=== PATIENT | male | born 1945 | race Caucasian/White ===

== ENCOUNTER 2024-01-11 08:09 | Emergency (ER) | payer MEDICARE, OTHER ==
[2024-01-11 08:56] LABS: #Basophils Less than 0.03 10x3/uL (0.0-0.2); %Basophils 0.1 % (0.0-1.0); %Eosinophils 0.4 % (0.0-10.0); %Lymphocytes 6.5 % (21.0-51.0); %Monocytes 2.3 % (0.0-10.0); %Neutrophils 90.2 % (42.0-75.0); Hematocrit 22.2 % (42.0-52.0); Hemoglobin 7.3 g/dL (14.0-18.0); Mean Corpuscular HGB CONC 32.9 g/dL (32.0-36.0); Mean Corpuscular Hemoglobin 30.9 pg (27.0-31.0); Mean Corpuscular Volume 94.1 fL (78.0-98.0); Mean Platelet Volume 9.5 fL (7.4-10.4); Platelet Count 103 10x3/uL (130-400); RBC Distribution Width 22.6 % (11.5-14.5); Red Blood Cell (RBC) Count 2.36 mill/uL (4.70-6.10)
[2024-01-11 09:14] LABS: ALT (SGPT) 41 U/L (8-55); AST (SGOT) 49 U/L (5-34); Albumin 2.2 g/dL (3.4-4.8); Alkaline Phosphatase 81 U/L (40-110); Anion Gap 17 mmol/L (10-20); BUN (Urea Nitrogen) 54 mg/dL (8.4-25.7); Calc. Creatinine Clearance 0 mL/min (70-130); Calcium 8.8 mg/dL (7.8-10.44); Carbon Dioxide 16 mmol/L (23-31); Chloride 108 mmol/L (98-107); Estimated GFR 27; Globulin 4.3 g/dL (2.4-3.5); Glucose 219 mg/dL (83-110); Lipase 38 U/L (8-78); Magnesium 1.5 mg/dL (1.6-2.6); Potassium 4.5 mmol/L (3.5-5.1); Protein, Total 6.5 g/dL (5.8-8.1); Sodium 136 mmol/L (136-145)
[2024-01-11 10:13] LABS: Troponin I 0.099 ng/mL (< 0.028)
[2024-01-11] MEDS ORDERED: Ondansetron PF 4 MG/2 ML Vial ONE (10:19)
[2024-01-11] MEDS ORDERED: Morphine 4 MG/ML VIAL ONE (10:19)
[2024-01-11 11:13] LABS: Bacteria/HPF 1+ HPF (None Seen); Bilirubin Negative (Negative); Blood, Urine 3+ (Negative); CAUTI Indications for Culture Alt mental st,lethar; Clarity Turbid (Clear); Glucose, Urine (Dipstick) Normal (Negative); Ketone, Urine Negative (Negative); Leukocyte 500 Leu/uL (Negative); Nitrite Negative (Negative); Protein, Urine (Dipstick) 70 mg/dL (Neg-Trace); RBC/HPF Greater than 50 HPF (0-3); Specific Gravity, Urine 1.011 (1.002-1.036); Squamous Epithelial 0-3 HPF (0-3); Urobilinogen Normal mg/dL (Less than 2); WBC/HPF Greater than 50 HPF (0-3)
[2024-01-11 11:14] LABS: Urine Culture Reflex Yes Yes
[2024-01-11] MEDS ORDERED: Sodium Chloride 0.9% 100 ML ONE (12:28)
== END 2024-01-11 13:56 ==
LOC: ERS 08:09
DX: D64.9 Anemia, unspecified (principal); N39.0 Urinary tract infection, site not specified; C95.90 Leukemia, unspecified not having achieved remission; I50.9 Heart failure, unspecified; N18.9 Chronic kidney disease, unspecified; Z55.6 Problems related to health literacy
CPT/HCPCS: 36430; 71045; 80053; 81001; 83605; 83690; 83735; 83880; 84484; 85025; 86850; 86900; 86901; 86920; 87040; 87086; 93005; 96365; 96375; 99285; J2270; J2405; J3490; P9016

== ENCOUNTER 2024-02-07 12:06 | Emergency (ER) | payer OTHER ==
[2024-02-07 12:46] LABS: Hematocrit 22.6 % (42.0-52.0); Hemoglobin 7.1 g/dL (14.0-18.0); Mean Corpuscular HGB CONC 31.4 g/dL (32.0-36.0); Mean Corpuscular Hemoglobin 31.3 pg (27.0-31.0); Mean Corpuscular Volume 99.6 fL (78.0-98.0); Mean Platelet Volume 11.2 fL (7.4-10.4); Platelet Count 103 10x3/uL (130-400); RBC Distribution Width 19.9 % (11.5-14.5); Red Blood Cell (RBC) Count 2.27 mill/uL (4.70-6.10)
[2024-02-07 12:56] LABS: INR-International Normal Ratio 1.3; Prothrombin Time 16.6 sec (12.0-14.7)
[2024-02-07 12:57] LABS: PTT 39.8 sec (22.9-36.1)
[2024-02-07 13:04] LABS: ALT (SGPT) 23 U/L (8-55); AST (SGOT) 29 U/L (5-34); Albumin 2.2 g/dL (3.4-4.8); Alkaline Phosphatase 66 U/L (40-110); Anion Gap 14 mmol/L (10-20); BUN (Urea Nitrogen) 40 mg/dL (8.4-25.7); Bilirubin, Total 0.5 mg/dL (0.2-1.2); Calc. Creatinine Clearance 0 mL/min (70-130); Carbon Dioxide 19 mmol/L (23-31); Chloride 112 mmol/L (98-107); Estimated GFR 34; Globulin 3.7 g/dL (2.4-3.5); Glucose 225 mg/dL (83-110); Potassium 4.7 mmol/L (3.5-5.1); Protein, Total 5.9 g/dL (5.8-8.1); Sodium 140 mmol/L (136-145)
[2024-02-07 13:15] LABS: Anisocytosis SLIGHT = 6-15 cells HPF (0-5); Band 10 % (5-11); Dohle Bodies SLIGHT; Hypochromia SLIGHT = 6-15 cells HPF (0-5); Lymphocytes 40 % (21-51); Monocytes 1 % (0-10); Neutrophil 48 % (42-75); Ovalocytes SLIGHT = 2-5 cells HPF (0-1); Platelet Adequacy Comment Platelets Decreased; Polychromasia SLIGHT = 2-3 cells HPF (0-2); Schistocytes SLIGHT = 2-5 cells HPF (0-1); Tear Drops SLIGHT = 2-5 cells HPF (0-1); Toxic Granulation SLIGHT
[2024-02-07 13:17] LABS: Troponin I 0.495 ng/mL (< 0.028)
[2024-02-07 17:04] LABS: Hematocrit 24.7 % (42.0-52.0); Hemoglobin 7.9 g/dL (14.0-18.0); Mean Corpuscular Volume 96.9 fL (78.0-98.0); Mean Platelet Volume 10.3 fL (7.4-10.4); Platelet Count 95 10x3/uL (130-400); RBC Distribution Width 19.9 % (11.5-14.5); Red Blood Cell (RBC) Count 2.55 mill/uL (4.70-6.10)
[2024-02-07 17:31] LABS: Anisocytosis SLIGHT = 6-15 cells HPF (0-5); Band 4 % (5-11); Burr Cells SLIGHT = 2-5 cells HPF (0-1); Dohle Bodies SLIGHT; Hypochromia SLIGHT = 6-15 cells HPF (0-5); Lymphocytes 48 % (21-51); Neutrophil 48 % (42-75); Nucleated RBC (Manual Ct) 1 % (0); Ovalocytes SLIGHT = 2-5 cells HPF (0-1); Platelet Adequacy Comment Platelets Decreased; Polychromasia SLIGHT = 2-3 cells HPF (0-2); Tear Drops SLIGHT = 2-5 cells HPF (0-1); Toxic Granulation SLIGHT
== END 2024-02-07 17:49 | disposition home or self-care (01) ==
LOC: ERS 12:06
DX: I21.4 Non-ST elevation (NSTEMI) myocardial infarction (principal); D64.9 Anemia, unspecified; I24.89 Other forms of acute ischemic heart disease; I12.9 Hypertensive chronic kidney disease with stage 1 through stage 4 chronic kidney disease, or unspecified chronic kidney disease; E11.22 Type 2 diabetes mellitus with diabetic chronic kidney disease; N18.9 Chronic kidney disease, unspecified; E78.5 Hyperlipidemia, unspecified; Z87.891 Personal history of nicotine dependence; Z79.899 Other long term (current) drug therapy; Z79.84 Long term (current) use of oral hypoglycemic drugs
CPT/HCPCS: 36430; 71045; 80053; 84484; 85025 ×2; 85610; 85730; 86850; 86900; 86901; 86920; 93005; P9016

== ENCOUNTER 2024-02-08 10:06 | Inpatient (IN) | payer OTHER ==
[2024-02-08 10:47] LABS: Hemoglobin 8.7 g/dL (14.0-18.0); Mean Corpuscular HGB CONC 32.2 g/dL (32.0-36.0); Mean Corpuscular Hemoglobin 31.5 pg (27.0-31.0); Mean Corpuscular Volume 97.8 fL (78.0-98.0); Mean Platelet Volume 10.2 fL (7.4-10.4); Platelet Count 113 10x3/uL (130-400); RBC Distribution Width 20.4 % (11.5-14.5); Red Blood Cell (RBC) Count 2.76 mill/uL (4.70-6.10)
[2024-02-08 11:25] LABS: Troponin I 0.377 ng/mL (< 0.028)
[2024-02-08 11:29] LABS: ALT (SGPT) 36 U/L (8-55); AST (SGOT) 37 U/L (5-34); Albumin 2.2 g/dL (3.4-4.8); Alkaline Phosphatase 99 U/L (40-110); Anion Gap 15 mmol/L (10-20); BUN (Urea Nitrogen) 39 mg/dL (8.4-25.7); Bilirubin, Total 0.6 mg/dL (0.2-1.2); Calc. Creatinine Clearance 0 mL/min (70-130); Calcium 7.8 mg/dL (7.8-10.44); Carbon Dioxide 17 mmol/L (23-31); Chloride 111 mmol/L (98-107); Estimated GFR 36; Globulin 3.8 g/dL (2.4-3.5); Glucose 347 mg/dL (83-110); Potassium 4.3 mmol/L (3.5-5.1); Sodium 139 mmol/L (136-145)
[2024-02-08] MEDS ORDERED: Iopamidol-370 76% 500 ML MDV (1 ML CHARGE) ONE (11:56)
[2024-02-08] MEDS ORDERED: Furosemide 40 MG (4 mL) VIAL ONE (12:13)
[2024-02-08] MEDS ORDERED: Nitroglycerin 2% Ointment 1 INCH/1 GM Packet ONE (12:13)
[2024-02-08 12:18] LABS: Lipase 65 U/L (8-78); Magnesium 1.5 mg/dL (1.6-2.6)
[2024-02-08 12:20] LABS: Anisocytosis SLIGHT = 6-15 cells HPF (0-5); Band 16 % (5-11); Burr Cells SLIGHT = 2-5 cells HPF (0-1); Large Platelets 16.5 % (0-5); Lymphocytes 21 % (21-51); Monocytes 1 % (0-10); Neutrophil 63 % (42-75); Nucleated RBC (Manual Ct) 6 % (0); Platelet Adequacy Comment Platelets Decreased; Polychromasia SLIGHT = 2-3 cells HPF (0-2); Schistocytes SLIGHT = 2-5 cells HPF (0-1)
[2024-02-08 13:30] LABS: Actual Bicarbonate (HCO3v) 18.9 mEq/L (22-28); Base Excess -5.3 mEq/L (-2.0 to +3.0); Calcium, Ionized (venous) 1.05 mmol/L (1.16-1.32); Chloride (VBG) 107 mmol/L (98-106); Hematocrit-VBG 28 % (42.0-52.0); Hemoglobin (Hb) 9.4 g/dL (12.6-17.4); Potassium (VBG) 4.24 mmol/L (3.70-5.30); Sodium 139 mmol/L (133-146); pH (venous) 7.394 (7.32-7.43)
[2024-02-08] MEDS ORDERED: Acetaminophen 325 MG TAB PO PRN (13:45)
[2024-02-08] MEDS ORDERED: Ondansetron PF 4 MG/2 ML Vial IVP PRN (13:45)
[2024-02-08] MEDS ORDERED: Ondansetron ODT 4 MG TAB PO PRN (13:45)
[2024-02-08] MEDS ORDERED: Acetaminophen 650 MG Suppository PR PRN (13:45)
[2024-02-08] MEDS ORDERED: Dextrose 50% Abboject 50 ML SYRINGE SLOW IVP PRN (13:47)
[2024-02-08] MEDS ORDERED: Dextrose 5% in Water 1,000 ML IV PRN (13:47)
[2024-02-08] MEDS ORDERED: Glucagon 1 MG/ML KIT IM PRN (13:47)
[2024-02-08] MEDS ORDERED: Magnesium 2 GM/50 ML BAG (IN WATER) ONE (13:50)
[2024-02-08] MEDS ORDERED: Enoxaparin 80 MG (0.8 mL) SYRINGE ONE (13:50)
[2024-02-08 14:58] LABS: Troponin I 0.376 ng/mL (< 0.028)
[2024-02-08 16:32] VITALS: BMI 22.8
[2024-02-08] MEDS: cefTRIAXone\\ROCEPHIN 2 GM in Sodium Chloride 0.9% 100 ML IVPB SCH (16:42)
[2024-02-08] MEDS: Carvedilol 25 MG TAB PO SCH (16:43)
[2024-02-08] MEDS: Azithromycin 500 MG in Sodium Chloride 0.9% 250 ML 250 ML IVPB SCH (16:46)
[2024-02-08] MEDS: Vancomycin (BATCH) 1.25 GM in Premix 1 BAG IVPB SCH (18:30)
[2024-02-08 18:47] LABS: Troponin I 0.375 ng/mL (< 0.028)
[2024-02-08] MEDS: Tamsulosin HCl 0.4 MG CAP PO SCH (20:42)
[2024-02-08] MEDS: Apixaban 5 MG TAB PO SCH (20:42)
[2024-02-08] MEDS: Sacubitril 49 MG/Valsartan 51 MG TABLET PO SCH (20:42)
[2024-02-08] MEDS: Famotidine 20 MG TAB PO SCH (20:42)
[2024-02-09] MEDS: Melatonin 3 MG TAB PO PRN (00:17)
[2024-02-09 04:56] LABS: Anion Gap 17 mmol/L (10-20); BUN (Urea Nitrogen) 36 mg/dL (8.4-25.7); Calc. Creatinine Clearance 31 mL/min (70-130); Calcium 7.8 mg/dL (7.8-10.44); Carbon Dioxide 16 mmol/L (23-31); Chloride 111 mmol/L (98-107); Estimated GFR 35; Glucose 181 mg/dL (83-110); Potassium 4.1 mmol/L (3.5-5.1); Sodium 140 mmol/L (136-145)
[2024-02-09 05:50] LABS: Hematocrit 24.8 % (42.0-52.0); Hemoglobin 7.9 g/dL (14.0-18.0); Mean Corpuscular HGB CONC 31.9 g/dL (32.0-36.0); Mean Corpuscular Hemoglobin 31.5 pg (27.0-31.0); Mean Corpuscular Volume 98.8 fL (78.0-98.0); Mean Platelet Volume 10.9 fL (7.4-10.4); Platelet Count 107 10x3/uL (130-400); RBC Distribution Width 20.2 % (11.5-14.5); Red Blood Cell (RBC) Count 2.51 mill/uL (4.70-6.10)
[2024-02-09] MEDS: Insulin Lispro 100 UNIT/ML 10 ML VIAL SC PRN (06:08)
[2024-02-09 07:01] LABS: Anisocytosis MODERATE=16-30 cells HPF (0-5); Band 16 % (5-11); Large Platelets 11.3 % (0-5); Lymphocytes 29 % (21-51); Macrocytosis SLIGHT = 6-15 cells HPF (0-5); Neutrophil 55 % (42-75); Nucleated RBC (Manual Ct) 6 % (0); Platelet Adequacy Comment Platelets Decreased; Polychromasia SLIGHT = 2-3 cells HPF (0-2); Smudge Cells 16.3 %
[2024-02-09 07:37] VITALS: BMI 22.6
[2024-02-09] MEDS ORDERED: [UNRECOGNIZED DRUG - OTHER] PO SCH (09:00)
[2024-02-09] MEDS: Amlodipine 10 MG TAB PO SCH (09:12)
[2024-02-09] MEDS: Ezetimibe 10 MG TAB PO SCH (09:12)
[2024-02-09] MEDS: Hydrochlorothiazide 25 MG TAB PO SCH (09:13)
[2024-02-09] MEDS: Rosuvastatin 20 MG TAB PO SCH (09:14)
[2024-02-09 10:35] LABS: Magnesium 1.8 mg/dL (1.6-2.6); Phosphorus 2.4 mg/dL (2.3-4.7)
[2024-02-09 12:19] LABS: Troponin I 0.291 ng/mL (< 0.028)
[2024-02-09 12:43] VITALS: TEMP 97.7
[2024-02-09 15:52] VITALS: BP 124/74
== END 2024-02-09 16:30 | disposition home or self-care (01) | DRG 175 ==
LOC: SUATTDRO 10:06 → ERS 10:06 → 2NO 15:35
PROVIDERS: ADMIT Family Medicine; ATTEND Family Medicine
DX: I26.99 Other pulmonary embolism without acute cor pulmonale (principal); I21.4 Non-ST elevation (NSTEMI) myocardial infarction; J18.9 Pneumonia, unspecified organism; I13.0 Hypertensive heart and chronic kidney disease with heart failure and stage 1 through stage 4 chronic kidney disease, or unspecified chronic kidney disease; C92.00 Acute myeloblastic leukemia, not having achieved remission; I24.89 Other forms of acute ischemic heart disease; N18.9 Chronic kidney disease, unspecified; E11.22 Type 2 diabetes mellitus with diabetic chronic kidney disease; E78.5 Hyperlipidemia, unspecified; I50.9 Heart failure, unspecified; D64.9 Anemia, unspecified; Z79.82 Long term (current) use of aspirin; Z79.899 Other long term (current) drug therapy; I12.9 Hypertensive chronic kidney disease with stage 1 through stage 4 chronic kidney disease, or unspecified chronic kidney disease; Z87.891 Personal history of nicotine dependence; Z79.84 Long term (current) use of oral hypoglycemic drugs
CPT/HCPCS: 36415; 36416; 36430; 71045; 71275; 80048; 80053; 82010; 82805; 83690; 83735; 83880; 84100; 84145; 84484; 85025; 85610; 85730; 86850; 86900; 86901; 93005; 94760; 96374; 96375; J0456; J0696; J1650; J1815; J1940; J3370; J3475; J3490; J7050; P9016; Q9967